=== PATIENT | male | born 1950 | race Native Hawaiian/Other Pacific Islander ===

== ENCOUNTER → 2017-11-10 | Outpatient (CLI) | payer MEDICARE ==
[2017-11-10 11:50] LABS: Anion Gap 11 mmol/L; Blood Urea Nitrogen 20 mg/dL (9-20); Calcium 9.2 mg/dL (8.4-10.2); Carbon Dioxide 27 mmol/L (22-30); Chloride 103 mmol/L (98-107); Glucose 94 mg/dL (74-99); Potassium 4.6 mmol/L (3.5-5.1); Sodium 141 mmol/L (137-145)
[2017-11-10 12:59] LABS: HCT 40.1 % (39.0-53.0); MCHC 32.3 g/dL (31.0-37.0); Mean Platelet Volume 7.7; RBC 4.47 m/uL (4.30-5.90); RDW 14.4 % (11.5-15.5); WBC 7.8 k/uL (3.8-10.6)
[2017-11-10 13:07] LABS: MCV 89.7 fL (80.0-100.0)
[2017-11-10 13:08] LABS: Platelet Count 179 k/uL (150-450)
== END | disposition home or self-care (01) ==
LOC: LABWHC1 10:56
PROVIDERS: ATTEND Internal Medicine Clinical Cardiac Electrophysiology
DX: I10 Essential (primary) hypertension (principal)
CPT/HCPCS: 36415; 80048; 85027

== ENCOUNTER → 2017-11-22 | Day surgery (SDC) | payer MEDICARE, OTHER ==
[2017-11-17 08:56] VITALS: BMI 32.3
[~2017-11-22] MED LIST: MIDAZOLAM 2 MG/2 ML VIAL ONE; PROPOFOL 10 MG/ML 20 ML VIAL IV ONE; SODIUM CHLORIDE 0.9% 1,000 ML IV SCH
[2017-11-22 07:17] VITALS: RESP 20
--- NOTE | 2017-11-22 08:32 | CE ---
CARDIAC ELECTROPHYSIOLOGY REPORT Mr. Garcia is a 67-year-old male patient with a history of ischemic cardiomyopathy who has had ventricular fibrillation after bypass surgery and received a dual-chamber ICD. He is brought in for DFT testing under anesthesia 3 months after his bypass grafting. Patient is brought to the EP lab in a fasting state. The ICD was interrogated. P- waves 5.8 mV, pacing impedance at the atrium 798 ohms, pacing threshold 0.8 V at 0.5 milliseconds. The ventricular sensing was greater than 25 mV, pacing impedance 519 ohms, pacing threshold 0.7 V at 0.5 milliseconds. Shock impedance 62 ohms. Under conscious sedation, DFT testing was performed in normal polarity. However, an 11 joule followed by a 21 joule shock failed and he had to be externally defibrillated. After waiting for 120 seconds and ensuring patient was stable, DFT testing once again performed in reverse polarity. A 21 joule shock failed and a 31 joule shock was successful. Charge time 4.9 seconds and shock impedance 56 ohms in reverse polarity. The device was then reprogrammed in reverse polarity with appropriate antitachycardia pacing cardioversion and defibrillation. First cardioversion at 31 joules, first defibrillation at 41 joules, MADIT-RIT programming. RESULT: High DFTs, DFT at 31 joules in reverse polarity. ICD interrogated and reprogrammed appropriately. Lead fluoroscopy was performed and the atrial RV and ICD leads were in stable position. RV ICD lead had been chronically placed in the septum. No dislodgement noted. FINAL DIAGNOSIS: Ischemic cardiomyopathy, congestive heart failure, ventricular fibrillation following bypass grafting after revascularization and now high DFTs. PLAN: Continue and maximize cardiac medications. MMODL / IJN: [id number] /
[2017-11-22 09:32] VITALS: BP 192/91; PULSE 60; TEMP 98
== END | disposition home or self-care (01) ==
LOC: CATHEP 06:05
PROVIDERS: ATTEND Internal Medicine Clinical Cardiac Electrophysiology
DX: I49.01 Ventricular fibrillation (principal); Z45.02 Encounter for adjustment and management of automatic implantable cardiac defibrillator; I25.5 Ischemic cardiomyopathy; I25.10 Atherosclerotic heart disease of native coronary artery without angina pectoris; I10 Essential (primary) hypertension; Z87.891 Personal history of nicotine dependence; Z95.1 Presence of aortocoronary bypass graft; E78.5 Hyperlipidemia, unspecified; Z79.02 Long term (current) use of antithrombotics/antiplatelets; Z79.82 Long term (current) use of aspirin; Z79.1 Long term (current) use of non-steroidal anti-inflammatories (NSAID); Z79.899 Other long term (current) drug therapy
CPT/HCPCS: 76000; 93642

== ENCOUNTER → 2018-09-29 | Outpatient (CLI) | payer MEDICARE, OTHER ==
[2018-09-29 16:04] LABS: Albumin 4.2 g/dL (3.80-4.90); Albumin/Globulin Ratio 2.33 (1.20-2.10); Anion Gap 6.3 mmol/L (4.00-12.00); Calcium 8.6 mg/dL (8.7-10.3); Carbon Dioxide 27.7 mmol/L (21.6-31.8); Globulin 1.8 g/dL (2.1-3.7); LDL Cholesterol,Calculated 50.2 mg/dL (0.0-131.0); Potassium 4.4 mmol/L (3.5-5.5); Total Bilirubin 0.6 mg/dL (0.3-1.2); VLDL Calculation 30.8 mg/dL (5.00-40.00)
== END | disposition home or self-care (01) ==
LOC: LABWHC1 09:42
PROVIDERS: ATTEND Nurse Practitioner Adult Health
DX: E78.5 Hyperlipidemia, unspecified (principal); I10 Essential (primary) hypertension
CPT/HCPCS: 36415; 80053; 80061

== ENCOUNTER → 2021-06-13 | Outpatient (CLI) | payer MEDICARE, OTHER ==
[2021-06-13 19:35] LABS: Chol/HDL Ratio 3.56; LDL Cholesterol,Calculated 37.8 mg/dL (0.0-131.0); VLDL Calculation 54.2 mg/dL (5.00-40.00)
== END | disposition home or self-care (01) ==
LOC: LABWHC1 09:36
PROVIDERS: ATTEND Internal Medicine Interventional Cardiology
DX: E78.2 Mixed hyperlipidemia (principal)
CPT/HCPCS: 36415; 80061; 84450; 84460

== ENCOUNTER → 2023-01-14 | Outpatient (CLI) | payer MEDICARE, OTHER ==
[2023-01-14 15:28] LABS: HCT 41.3 % (39.6-50.0); HGB 13.6 g/dL (13.0-17.0); MCH 36.3 pg (27.0-32.0); MCHC 32.9 g/dL (32.0-37.0); MCV 110.1 fL (80.0-97.0); Mean Platelet Volume 10.4 fL (9.5-12.2); NRBC Per 100 WBC 0 /100 WBCS (0.0-0.0); Platelet Count 181 X 10*3/uL (140-440); RBC 3.75 X 10*6/uL (4.40-5.60); RDW 13.4 % (11.5-14.5)
[2023-01-14 15:56] LABS: Basophils # (A) 0.03 X 10*3/uL (0.00-0.10); Basophils % (A) 0.4 %; Eosinophils # (A) 0.23 X 10*3/uL (0.04-0.35); Eosinophils % (A) 3.2 %; Immature Grans, Automated 0.4 %; Lymphocytes # (A) 1.78 X 10*3/uL (0.90-5.00); Lymphocytes % (A) 24.4 %; Monocytes # (A) 0.45 X 10*3/uL (0.20-1.00); Monocytes % (A) 6.2 %; Neutrophils # (A) 4.78 X 10*3/uL (1.80-7.70); Neutrophils % (A) 65.4 %; RBC Morphology NORMAL
[2023-01-14 16:02] LABS: ALT 12 U/L (10-49); AST 21 U/L (14-35); African American GFR (CKD) 103.4 (60.0-200.0); Albumin 4.5 g/dL (3.8-4.9); Alkaline Phosphatase 80 U/L (41-126); Blood Urea Nitrogen 23.2 mg/dL (9.0-27.0); Calcium 8.8 mg/dL (8.7-10.3); Carbon Dioxide 24.8 mmol/L (20.0-27.5); Chloride 103 mmol/L (96-109); Globulin 2.5 g/dL (1.6-3.3); Glucose 103 mg/dL (70-110); LDL Cholesterol,Calculated 42.9 mg/dL (0.0-131.0); Non-African American GFR(CKD) 89.2 (60.0-200.0); Potassium 4.8 mmol/L (3.5-5.5); Sodium 140 mmol/L (135-145)
[2023-01-14 16:09] LABS: Vitamin B12 <150.0 pg/mL (200.0-944.0)
== END | disposition home or self-care (01) ==
LOC: LABWHC1 09:04
PROVIDERS: ATTEND Internal Medicine
DX: Z00.00 Encounter for general adult medical examination without abnormal findings (principal); Z12.5 Encounter for screening for malignant neoplasm of prostate; E55.9 Vitamin D deficiency, unspecified; I10 Essential (primary) hypertension; E16.2 Hypoglycemia, unspecified; D51.9 Vitamin B12 deficiency anemia, unspecified; R53.83 Other fatigue
CPT/HCPCS: 80061; 80053; 82607; 84443; 85025; 82306; 83036; 36415; G0103

== ENCOUNTER → 2023-11-26 | Outpatient (CLI) | payer MEDICARE, OTHER ==
--- NOTE | 2023-11-26 08:50 | XR ---
EXAMINATION TYPE: XR chest 2V DATE OF EXAM: 11/26/2023 COMPARISON: 09/20/2017 TECHNIQUE: PA and lateral views submitted. HISTORY: Chest pain FINDINGS: The lungs are clear and there is no pneumothorax, pleural effusion, or focal pneumonia. Heart size normal and no overt failure. Osseous structures demonstrate hypertrophic and degenerative changes of the spine. Poststernotomy changes and cardiac device. IMPRESSION: 1. No acute process.
[2023-11-26 17:00] LABS: T4, Free (Free Thyroxine) 1.55 ng/dL (0.80-1.80)
== END | disposition home or self-care (01) ==
LOC: LABWHC1 07:45
PROVIDERS: ATTEND Internal Medicine Interventional Cardiology
DX: I48.21 Permanent atrial fibrillation (principal)
CPT/HCPCS: 36415; 71046; 84439; 84443; 84450; 84460

== ENCOUNTER → 2024-01-29 | Outpatient (CLI) | payer MEDICARE, OTHER ==
--- NOTE | 2024-01-29 13:16 | XR ---
EXAMINATION TYPE: XR knee complete bilateral DATE OF EXAM: 01/29/2024 9:08 AM CLINICAL INDICATION:Male, 73 years old with history of M25.569 KNEE R L PAIN UNSPECIFIED; [facility] COMPARISON: None. TECHNIQUE: XR knee complete bilateral; examined in Frontal, lateral and oblique projections. FINDINGS: No evidence of any acute osseous pathology, soft tissue swelling, or joint effusion is no hua. Tricompartmental osteophyte formation involving the femoral condyles, tibial plateau and patella . Mild joint space narrowing. Surgical clips along the medial aspect of the proximal leg. IMPRESSION: 1. No acute osseous pathology. 2. Moderate tricompartmental osteoarthritic changes.
== END | disposition home or self-care (01) ==
LOC: RADXRMAIN 08:42
PROVIDERS: ATTEND Internal Medicine
DX: M17.0 Bilateral primary osteoarthritis of knee (principal)

== ENCOUNTER → 2024-02-01 | Outpatient (CLI) | payer MEDICARE, OTHER | END | disposition home or self-care (01) | LOC: LABWHC1 08:48 | PROVIDERS: ATTEND Urology | DX: R97.20 Elevated prostate specific antigen [PSA] (principal) | CPT/HCPCS: 36415; 84153 ==

== ENCOUNTER 2024-03-30 07:05 | Observation (INO) | payer MEDICARE, OTHER ==
--- NOTE | 2024-03-30 07:28 | ED ---
Weakness HPI - General Chief complaint: Weakness Stated complaint: weakness Time Seen by Provider: 03/30/24 07:21 Source: patient, RN notes reviewed Mode of arrival: wheelchair Limitations: no limitations - History of Present Illness Initial comments: This is a 73-year-old male who presents to the emergency department for generalized weakness. This morning he felt like he could not get off of the sofa because he was so weak. He tried multiple times without any success. When he was able to stand he felt very dizzy and when he tried to go to the bathroom he ended up falling, landing on his knees. Denies hitting his head. Denies ever feeling like this before. He has had some tightness in his chest as well as some shortness of breath. States that he currently feels nauseous. He had prostate beads removed [address] Mccord and denies any problems with the procedure or any urinary symptoms. MD Complaint: generalized weakness - Related Data Home Medications Medication Instructions Recorded Confirmed Acetaminophen Tab [Tylenol] 650 mg PO BID 03/30/24 03/30/24 Amiodarone [Cordarone] 100 mg PO DAILY 03/30/24 03/30/24 Ergocalciferol (Vitamin D2) 1,250 mcg PO FR 03/30/24 03/30/24 [Drisdol (50,000 Iu)] Ibuprofen [Motrin] 400 - 800 mg PO Q4-6H PRN 03/30/24 03/30/24 Losartan Potassium 100 mg PO DAILY 03/30/24 03/30/24 Sildenafil Citrate 100 mg PO DAILY PRN 03/30/24 03/30/24 Sulfamethox-Tmp 800-160Mg [Bactrim 1 tab PO DIRECTED 03/30/24 03/30/24 DS 800-160 mg] Tamsulosin [Flomax] 0.4 mg PO DAILY 03/30/24 03/30/24 amLODIPine [Norvasc] 5 mg PO DAILY 03/30/24 03/30/24 carvediloL [Coreg] 25 mg PO BID 03/30/24 03/30/24 Previous Rx's Medication Instructions Recorded Atorvastatin [Lipitor] 40 mg PO DAILY #30 tab 09/20/17 Clopidogrel [Plavix] 75 mg PO DAILY #30 tab 09/20/17 Spironolactone [Aldactone] 25 mg PO DAILY #30 tab 09/20/17 Allergies Allergy/AdvReac Type Severity Reaction Status Date / Time No Known Allergies Allergy Verified 03/30/24 10:35 Review of Systems ROS Statement: Those systems with pertinent positive or pertinent negative responses have been documented in the HPI. ROS Other: All systems not noted in ROS Statement are negative. Past Medical History Past Medical History: Hyperlipidemia, Hypertension Additional Past Medical History / Comment(s): "BORDERLINE DIABETES", HX OF SHINGLES., STATES SLOW URINE STREAM with some post void dribbling. History of a Cyst to his left kidney. pacemaker History of Any Multi-Drug Resistant Organisms: None Reported Past Surgical History: Hernia Repair, Orthopedic Surgery Additional Past Surgical History / Comment(s): RIGHT ROTATOR CUFF, LEFT FOOT FX., LEFT KIDNEY CYSTS, FLORENTIN EAR DRUM SURGERY as a teenager. Past Anesthesia/Blood Transfusion Reactions: No Reported Reaction Past Psychological History: No Psychological Hx Reported Past Alcohol Use History: None Reported Past Drug Use History: None Reported - Past Family History Mother Family Medical History: Cancer Additional Family Medical History / Comment(s): BREAST CANCER Sister(s) Family Medical History: Cancer Additional Family Medical History / Comment(s): HALF-SISTER General Exam Limitations: no limitations General appearance: alert, in no apparent distress Head exam: Present: atraumatic, normocephalic, normal inspection Respiratory exam: Present: normal lung sounds bilaterally. Absent: respiratory distress, wheezes, rales, rhonchi, stridor Cardiovascular Exam: Present: regular rate, normal rhythm, normal heart sounds. Absent: systolic murmur, diastolic murmur, rubs, gallop, clicks GI/Abdominal exam: Present: soft, normal bowel sounds. Absent: distended, tenderness, guarding, rebound, rigid Extremities exam: Present: other (Minor tenderness to palpation of the bilateral knees. No deformities, swelling, or ecchymosis. 2+ DP and PT pulses bilaterally) Neurological exam: Present: alert, oriented X3, CN II-XII intact Psychiatric exam: Present: normal affect, normal mood Skin exam: Present: warm, dry, intact, normal color. Absent: rash Course Vital Signs 03/30/24 03/30/24 07:18 10:36 Temperature 98.6 F Pulse Rate 66 62 Respiratory 18 18 Rate Blood Pressure 137/70 115/60 O2 Sat by Pulse 97 99 Oximetry Medical Decision Making - Medical Decision Making This is a 73-year-old male who presents to the emergency department for generalized weakness. Was pt. sent in by a medical professional or institution? @ -No Did you speak to anyone other than the patient for history? @ -No Did you review nursing and triage notes? @ -Yes, and I agree, it is accurate with regards to the patient's symptoms. Were old charts reviewed? @ -No Differential Diagnosis? @ -Differential Weakness: Hypoglycemia, shock, sepsis, hyponatremia, anemia, infection, [place], ETOH, adverse medicine reaction, overdose, stroke, this is not meant to be an all-inclusive list. EKG interpreted by me (3pts min.)? @ -EKG interpreted by me demonstrating the following: Sinus rhythm. Ventricular rate 67 bpm, LA interval 180 ms, QRS duration 110 ms, QTc 435 ms. X-rays interpreted by me (1pt min.)? @ -Chest x-ray obtained, my interpretation identifies no localized consolidations or infiltrates. X-ray of the bilateral knees obtained. My interpretation identifies no acute fractures. CT interpreted by me (1pt min.)? @ -Not obtained U/S interpreted by me (1pt. min.)? @ -Not obtained What testing was considered but not performed? (CT, X-rays, U/S, labs)? Why? @ -None What meds were considered but not given? Why? @ -None Did you discuss the management of the patient with other professionals? @ -Yes, Dr. Chisholm, who accepts the patient for admission. Did you reconcile home meds? @ -Yes Was smoking cessation discussed for >3mins.? @ -No Was critical care preformed (if so, how long)? @ -No Were there social determinants of health that impacted care today? How? (Homelessness, low income, unemployed, alcoholism, drug addiction, transportation, low edu. Level, literacy, decrease access to med. care, long-term, rehab)? @ -No Was there de-escalation of care discussed even if they declined? (Discuss DNR or withdrawal of care, Hospice)? @ -No What co-morbidities impacted this encounter? (DM, HTN, Smoking, COPD, CAD, Cancer, CVA, Hep., AIDS, mental health diagnosis, sleep apnea, morbid obesity)? @ -HLD, HTN Was patient admitted / discharged? @ -Admitted. Lab work demonstrates leukocytosis. He also has hyperkalemia, h owever potassium is hemolyzed. Potassium repeated and also hemolyzed. Elevated D-dimer of 0.70 is negative when corrected for patient's age. COVID, influenza, RSV testing negative. Urinalysis consistent with infection. Chest x- ray and x-ray of the bilateral knees reveal no acute process. When discussing disposition with the patient and his family, states that they are not comfortable taking him home in his current state given that he is not able to move around and this already led to one fall. Patient admitted to medicine for UTI and weakness. Blood and urine cultures obtained and he was given 2g of Ceftriaxone. Undiagnosed new problem with uncertain prognosis? @ -None Drug Therapy requiring intensive monitoring for toxicity (Heparin, Nitro, Insu jaren, Cardizem)? @ -None Were any procedures done? @ -None Diagnosis/symptom? @ -UTI, weakness Acute, or Chronic, or Acute on Chronic? @ -Acute Uncomplicated (without systemic symptoms) or Complicated (systemic symptoms)? @ -Complicated Side effects of treatment? @ -None Exacerbation, Progression, or Severe Exacerbation] @ -Not applicable Poses a threat to life or bodily function? @ -Yes This case was discussed in detail with the attending ED physician, Dr. David. Presentation, findings, and treatment plan discussed in detail as well. - Lab Data Result diagrams: 03/30/24 07:43 03/30/24 09:14 Lab Results 03/30/24 03/30/24 03/30/24 Range/Units 07:43 07:43 07:43 WBC 16.7 H (3.8-10.6) k/uL RBC 3.88 L (4.30-5.90) m/uL Hgb 13.2 (13.0-17.5) gm/dL Hct 39.7 (39.0-53.0) % MCV 102.2 H (80.0-100.0) fL MCH 34.0 (25.0-35.0) pg MCHC 33.3 (31.0-37.0) g/dL RDW 14.2 (11.5-15.5) % Plt Count 222 (150-450) k/uL MPV 7.9 Neutrophils % 87 % Lymphocytes % 7 % Monocytes % 6 % Eosinophils % 0 % Basophils % 0 % Neutrophils # 14.4 H (1.3-7.7) k/uL Lymphocytes # 1.2 (1.0-4.8) k/uL Monocytes # 0.9 (0-1.0) k/uL Eosinophils # 0.0 (0-0.7) k/uL Basophils # 0.0 (0-0.2) k/uL Macrocytosis Slight PT 11.4 (10.0-12.5) sec INR 1.1 (<1.2) APTT 23.3 (22.0-30.0) sec D-Dimer 0.70 H (<0.60) mg/L FEU Sodium 136 L (137-145) mmol/L Potassium 5.6 H (3.5-5.1) mmol/L Chloride 107 (98-107) mmol/L Carbon Dioxide 22 (22-30) mmol/L Anion Gap 7 mmol/L BUN 24 H (9-20) mg/dL Creatinine 0.89 (0.66-1.25) mg/dL Est GFR (CKD-EPI)AfAm >90 (>60 ml/min/1.73 sqM) Est GFR (CKD-EPI)NonAf 85 (>60 ml/min/1.73 sqM) Glucose 119 H (74-99) mg/dL Plasma Lactic Acid Prasad (0.7-2.0) mmol/L Calcium 8.8 (8.4-10.2) mg/dL Magnesium 1.7 (1.6-2.3) mg/dL Total Bilirubin 1.1 (0.2-1.3) mg/dL AST 48 (17-59) U/L ALT 21 (4-49) U/L Alkaline Phosphatase 51 (38-126) U/L Troponin I (0.000-0.034) ng/mL Total Protein 6.4 (6.3-8.2) g/dL Albumin 3.8 (3.5-5.0) g/dL Urine Color Urine Appearance (Clear) Urine pH (5.0-8.0) Ur Specific [place] (1.001-1.035) Urine Protein (Negative) Urine Glucose (UA) (Negative) Urine Ketones (Negative) Urine Blood (Negative) Urine Nitrite (Negative) Urine Bilirubin (Negative) Urine Urobilinogen (<2.0) mg/dL Ur Leukocyte Esterase (Negative) Urine RBC (0-5) /hpf Urine WBC (0-5) /hpf Ur Squamous Epith Cells (0-4) /hpf Urine Bacteria (None) /hpf Urine Mucus (None) /hpf Influenza Type A (PCR) (Not Detectd) Influenza Type B (PCR) (Not Detectd) RSV (PCR) (Not Detectd) SARS-CoV-2 (PCR) (Not Detectd) 03/30/24 03/30/24 03/30/24 Range/Units 07:43 07:43 07:50 WBC (3.8-10.6) k/uL RBC (4.30-5.90) m/uL Hgb (13.0-17.5) gm/dL Hct (39.0-53.0) % MCV (80.0-100.0) fL MCH (25.0-35.0) pg MCHC (31.0-37.0) g/dL RDW (11.5-15.5) % Plt Count (150-450) k/uL MPV Neutrophils % % Lymphocytes % % Monocytes % % Eosinophils % % Basophils % % Neutrophils # (1.3-7.7) k/uL Lymphocytes # (1.0-4.8) k/uL Monocytes # (0-1.0) k/uL Eosinophils # (0-0.7) k/uL Basophils # (0-0.2) k/uL Macrocytosis PT (10.0-12.5) sec INR (<1.2) APTT (22.0-30.0) sec D-Dimer (<0.60) mg/L FEU Sodium (137-145) mmol/L Potassium (3.5-5.1) mmol/L Chloride (98-107) mmol/L Carbon Dioxide (22-30) mmol/L Anion Gap mmol/L BUN (9-20) mg/dL Creatinine (0.66-1.25) mg/dL Est GFR (CKD-EPI)AfAm (>60 ml/min/1.73 sqM) Est GFR (CKD-EPI)NonAf (>60 ml/min/1.73 sqM) Glucose (74-99) mg/dL Plasma Lactic Acid Prasad 1.1 (0.7-2.0) mmol/L Calcium (8.4-10.2) mg/dL Magnesium (1.6-2.3) mg/dL Total Bilirubin (0.2-1.3) mg/dL AST (17-59) U/L ALT (4-49) U/L Alkaline Phosphatase (38-126) U/L Troponin I <0.012 (0.000-0.034) ng/mL Total Protein (6.3-8.2) g/dL Albumin (3.5-5.0) g/dL Urine Color Urine Appearance (Clear) Urine pH (5.0-8.0) Ur Specific [place] (1.001-1.035) Urine Protein (Negative) Urine Glucose (UA) (Negative) Urine Ketones (Negative) Urine Blood (Negative) Urine Nitrite (Negative) Urine Bilirubin (Negative) Urine Urobilinogen (<2.0) mg/dL Ur Leukocyte Esterase (Negative) Urine RBC (0-5) /hpf Urine WBC (0-5) /hpf Ur Squamous Epith Cells (0-4) /hpf Urine Bacteria (None) /hpf Urine Mucus (None) /hpf Influenza Type A (PCR) Not Detected (Not Detectd) Influenza Type B (PCR) Not Detected (Not Detectd) RSV (PCR) Not Detected (Not Detectd) SARS-CoV-2 (PCR) Not Detected (Not Detectd) 03/30/24 03/30/24 Range/Units 09:14 09:14 WBC (3.8-10.6) k/uL RBC (4.30-5.90) m/uL Hgb (13.0-17.5) gm/dL Hct (39.0-53.0) % MCV (80.0-100.0) fL MCH (25.0-35.0) pg MCHC (31.0-37.0) g/dL RDW (11.5-15.5) % Plt Count (150-450) k/uL MPV Neutrophils % % Lymphocytes % % Monocytes % % Eosinophils % % Basophils % % Neutrophils # (1.3-7.7) k/uL Lymphocytes # (1.0-4.8) k/uL Monocytes # (0-1.0) k/uL Eosinophils # (0-0.7) k/uL Basophils # (0-0.2) k/uL Macrocytosis PT (10.0-12.5) sec INR (<1.2) APTT (22.0-30.0) sec D-Dimer (<0.60) mg/L FEU Sodium (137-145) mmol/L Potassium 5.9 H (3.5-5.1) mmol/L Chloride (98-107) mmol/L Carbon Dioxide (22-30) mmol/L Anion Gap mmol/L BUN (9-20) mg/dL Creatinine (0.66-1.25) mg/dL Est GFR (CKD-EPI)AfAm (>60 ml/min/1.73 sqM) Est GFR (CKD-EPI)NonAf (>60 ml/min/1.73 sqM) Glucose (74-99) mg/dL Plasma Lactic Acid Prasad (0.7-2.0) mmol/L Calcium (8.4-10.2) mg/dL Magnesium (1.6-2.3) mg/dL Total Bilirubin (0.2-1.3) mg/dL AST (17-59) U/L ALT (4-49) U/L Alkaline Phosphatase (38-126) U/L Troponin I (0.000-0.034) ng/mL Total Protein (6.3-8.2) g/dL Albumin (3.5-5.0) g/dL Urine Color Yellow Urine Appearance Clear (Clear) Urine pH 5.0 (5.0-8.0) Ur Specific [place] 1.017 (1.001-1.035) Urine Protein Negative (Negative) Urine Glucose (UA) Negative (Negative) Urine Ketones Negative (Negative) Urine Blood Small H (Negative) Urine Nitrite Negative (Negative) Urine Bilirubin Negative (Negative) Urine Urobilinogen <2.0 (<2.0) mg/dL Ur Leukocyte Esterase Large H (Negative) Urine RBC 18 H (0-5) /hpf Urine WBC 65 H (0-5) /hpf Ur Squamous Epith Cells 1 (0-4) /hpf Urine Bacteria Many H (None) /hpf Urine Mucus Rare H (None) /hpf Influenza Type A (PCR) (Not Detectd) Influenza Type B (PCR) (Not Detectd) RSV (PCR) (Not Detectd) SARS-CoV-2 (PCR) (Not Detectd) - Radiology Data Radiology results: report reviewed, image reviewed Disposition Clinical Impression: UTI (urinary tract infection), Weakness Disposition: ADMITTED IP TO THIS HOSP
[2024-03-30] MEDS: SODIUM CHLORIDE 0.9% 1,000 ML IV STA (07:52)
[2024-03-30] MEDS: ONDANSETRON 4 MG/2 ML VIAL IVP STA (07:53)
[2024-03-30 07:58] LABS: Basophils % (A) 0 %; Eosinophils % (A) 0 %; HCT 39.7 % (39.0-53.0); HGB 13.2 gm/dL (13.0-17.5); Lymphocytes # (A) 1.2 k/uL (1.0-4.8); Lymphocytes % (A) 7 %; MCHC 33.3 g/dL (31.0-37.0); MCV 102.2 fL (80.0-100.0); Macrocytosis Slight; Mean Platelet Volume 7.9; Monocytes # (A) 0.9 k/uL (0-1.0); Monocytes % (A) 6 %; Neutrophils # (A) 14.4 k/uL (1.3-7.7); Neutrophils % (A) 87 %; Platelet Count 222 k/uL (150-450); RBC 3.88 m/uL (4.30-5.90); RDW 14.2 % (11.5-15.5); WBC 16.7 k/uL (3.8-10.6)
[2024-03-30 08:21] LABS: ALT 21 U/L (4-49); AST 48 U/L (17-59); African American GFR (CKD) >90 (>60 ml/min/1.73 sqM); Albumin 3.8 g/dL (3.5-5.0); Alkaline Phosphatase 51 U/L (38-126); Anion Gap 7 mmol/L; Blood Urea Nitrogen 24 mg/dL (9-20); Calcium 8.8 mg/dL (8.4-10.2); Carbon Dioxide 22 mmol/L (22-30); Chloride 107 mmol/L (98-107); Glucose 119 mg/dL (74-99); Magnesium 1.7 mg/dL (1.6-2.3); Non-African American GFR(CKD) 85 (>60 ml/min/1.73 sqM); Sodium 136 mmol/L (137-145); Total Bilirubin 1.1 mg/dL (0.2-1.3); Total Protein 6.4 g/dL (6.3-8.2)
--- NOTE | 2024-03-30 08:23 | XR ---
EXAMINATION TYPE: XR chest 2V DATE OF EXAM: 03/30/2024 COMPARISON: 11/26/2023 TECHNIQUE: PA and lateral views submitted. HISTORY: Chest tightness FINDINGS: The lungs are clear and there is no pneumothorax, pleural effusion, or focal pneumonia. Heart size normal and no overt failure. Osseous structures demonstrate hypertrophic and degenerative changes of the spine. Stable cardiac device. Arthropathy of the AC joint. IMPRESSION: 1. No acute process.
--- NOTE | 2024-03-30 08:25 | XR ---
EXAMINATION TYPE: XR knee complete bilateral DATE OF EXAM: 03/30/2024 COMPARISON: NONE HISTORY: Pain TECHNIQUE: Three views are submitted. FINDINGS: Severe narrowing of the patellofemoral compartment and medial compartment of knee joint. There is mar ginal spurring. These findings or heterotopic ossification involving the patella and spurring of the tibial tubercle bilaterally. No erosive changes. Surgical clips are seen in the soft tissues of the l eft lower extremity. There are vascular calcifications.. Osseous structures are intact. No acute fr acture seen. IMPRESSION: 1. Bilateral severe osteoarthritis..
[2024-03-30 08:38] LABS: Potassium 5.6 mmol/L (3.5-5.1)
[2024-03-30 08:42] LABS: INR 1.1 (<1.2); Partial Thromboplastin Time 23.3 sec (22.0-30.0); Prothrombin Time 11.4 sec (10.0-12.5)
[2024-03-30 09:38] LABS: Appearance,Urine Clear (Clear); Bacteria,Urine Many /hpf; Bilirubin,Urine Negative (Negative); Blood,Urine Small (Negative); Color,Urine Yellow; Glucose,Urine (UA) Negative (Negative); Ketones,Urine Negative (Negative); Leukocyte Esterase,Urine Large (Negative); Mucus,Urine Rare /hpf; Nitrite,Urine Negative (Negative); Protein,Urine Negative (Negative); RBC,Urine 18 /hpf (0-5); Specific Gravity,Urine 1.017 (1.001-1.035); Squamous Epithelial Cell,Urine 1 /hpf (0-4); Urobilinogen,Urine <2.0 mg/dL (<2.0); WBC,Urine 65 /hpf (0-5)
[2024-03-30] MEDS ORDERED: HYDROcodone/APAP 5-325MG 1 EACH TAB PO PRN (10:42)
[2024-03-30] MEDS ORDERED: ACETAMINOPHEN TAB 325 MG TAB PO PRN (10:42)
[2024-03-30] MEDS ORDERED: ONDANSETRON 4 MG/2 ML VIAL IVP PRN (10:42)
[2024-03-30] MEDS ORDERED: NALOXONE 0.4 MG/ML 1 ML VIAL IV PRN (10:42)
[2024-03-30] MEDS ORDERED: MORPHINE SULFATE 4 MG/ML SYRINGE IV PRN (10:42)
[2024-03-30] MEDS ORDERED: IBUPROFEN 400 MG TAB PO PRN (10:43)
[2024-03-30] MEDS ORDERED: NON FORMULARY DRUG (Sildenafil Citrate [Sildenafil Citrate] 100 MG Tablet) PO PRN (10:43)
[2024-03-30] MEDS: SODIUM CHLORIDE 0.9% 1,000 ML IV SCH (10:58)
[2024-03-30] MEDS: SODIUM ZIRCONIUM CYCLOSILICATE 10 GM PACKET PO ONE (14:13)
--- NOTE | 2024-03-30 14:14 | P.HPIM ---
History of Present Illness 73-year-old pleasant male came to emergency department with complaints of generalized weakness dysuria and increased urinary frequency patient had a cystoscopy with prostatic biopsies about a week ago since then patient having these problems. Patient is also on Bactrim which was started by his dentist although I do not see any overt dental abscess or infection at this time. Patient is also found to have elevated potassium patient is on Aldactone and losartan and patient does have history of congestive heart failure with EF of a round 30 to 35%. Patient is not on any diuretics at home. Patient denies any fever chills patient was complaining of her epigastric abdominal discomfort although patient's medication list includes ibuprofen patient has not been taking this medication. Patient has leukocytosis without any fever. REVIEW OF SYSTEMS: CONSTITUTIONAL: No fever, no malaise, no fatigue. HEENT: No recent visual problems or hearing problems. Denied any sore throat. CARDIOVASCULAR: No chest pain, orthopnea, PND, no palpitations, no syncope. PULMONARY: No shortness of breath, no cough, no hemoptysis. GASTROINTESTINAL: No diarrhea, no nausea, no vomiting, no abdominal pain. NEUROLOGICAL: No headaches, no weakness, no numbness. HEMATOLOGICAL: Denies any bleeding or petechiae. GENITOURINARY: As mentioned in HPI MUSCULOSKELETAL/RHEUMATOLOGICAL: Denies any joint pain, swelling, or any muscle pain. ENDOCRINE: Denies any polyuria or polydipsia. The rest of the 14-point review of systems is negative. PHYSICAL EXAMINATION: GENERAL: The patient is alert and oriented x3, not in any acute distress. Well developed, well nourished. HEENT: Pupils are round and equally reacting to light. EOMI. No scleral icterus. No conjunctival pallor. Normocephalic, atraumatic. No pharyngeal erythema. No thyromegaly. CARDIOVASCULAR: S1 and S2 present. No murmurs, rubs, or gallops. PULMONARY: Chest is clear to auscultation, no wheezing or crackles. ABDOMEN: Soft, nontender, nondistended, normoactive bowel sounds. No palpable organomegaly. MUSCULOSKELETAL: No joint swelling or deformity. EXTREMITIES: No cyanosis, clubbing, or pedal edema. NEUROLOGICAL: Gross neurological examination did not reveal any focal deficits. SKIN: No rashes. Assessment and plan -Possible urinary tract infection, urine is not significantly abnormal as patient is being partially treated with Bactrim I do not expect his urine cultures to be positive patient will be empirically started on Rocephin if his symptoms improve patient will be discharged on Ceftin tomorrow -Hyperkalemia secondary to Bactrim, losartan, Aldactone all of which are being held at this time. If patient's potassium improves with Lokelma and low potas sium diet patient will be resumed on losartan and Aldactone. -Congestive heart failure chronic systolic function without any acute exacerbation patient is IV fluids will be discontinued and patient patient will be resumed on losartan and Aldactone once a potassium improves -Hyperlipidemia -Hypertension amlodipine will be resumed losartan will be resumed tomorrow if potassium improves -Recent prostatic biopsy DVT prophylaxis: Early ambulation Past Medical History Past Medical History: Hyperlipidemia, Hypertension Additional Past Medical History / Comment(s): "BORDERLINE DIABETES", HX OF SHINGLES., STATES SLOW URINE STREAM with some post void dribbling. History of a Cyst to his left kidney. pacemaker History of Any Multi-Drug Resistant Organisms: None Reported Past Surgical History: Hernia Repair, Orthopedic Surgery Additional Past Surgical History / Comment(s): RIGHT ROTATOR CUFF, LEFT FOOT FX., LEFT KIDNEY CYSTS, FLORENTIN EAR DRUM SURGERY as a teenager. Past Anesthesia/Blood Transfusion Reactions: No Reported Reaction Past Psychological History: No Psychological Hx Reported Past Alcohol Use History: None Reported Past Drug Use History: None Reported - Past Family History Mother Family Medical History: Cancer Additional Family Medical History / Comment(s): BREAST CANCER Sister(s) Family Medical History: Cancer Additional Family Medical History / Comment(s): HALF-SISTER Medications and Allergies Home Medications Medication Instructions Recorded Confirmed Type Atorvastatin [Lipitor] 40 mg PO DAILY #30 tab 09/20/17 03/30/24 Rx Clopidogrel [Plavix] 75 mg PO DAILY #30 tab 09/20/17 03/30/24 Rx Spironolactone [Aldactone] 25 mg PO DAILY #30 tab 09/20/17 03/30/24 Rx Acetaminophen Tab [Tylenol] 650 mg PO BID 03/30/24 03/30/24 History Amiodarone [Cordarone] 100 mg PO DAILY 03/30/24 03/30/24 History Ergocalciferol (Vitamin D2) 1,250 mcg PO FR 03/30/24 03/30/24 History [Drisdol (50,000 Iu)] Ibuprofen [Motrin] 400 - 800 mg PO Q4-6H PRN 03/30/24 03/30/24 History Losartan Potassium 100 mg PO DAILY 03/30/24 03/30/24 History Sildenafil Citrate 100 mg PO DAILY PRN 03/30/24 03/30/24 History Sulfamethox-Tmp 800-160Mg [Bactrim 1 tab PO DIRECTED 03/30/24 03/30/24 History DS 800-160 mg] Tamsulosin [Flomax] 0.4 mg PO DAILY 03/30/24 03/30/24 History amLODIPine [Norvasc] 5 mg PO DAILY 03/30/24 03/30/24 History carvediloL [Coreg] 25 mg PO BID 03/30/24 03/30/24 History Allergies Allergy/AdvReac Type Severity Reaction Status Date / Time No Known Allergies Allergy Verified 03/30/24 10:35 Physical Exam Vitals: Vital Signs Temp Pulse Resp BP Pulse Ox 03/30/24 13:08 66 16 152/70 94 L 03/30/24 10:36 62 18 115/60 99 03/30/24 07:18 98.6 F 66 18 137/70 97 Intake and Output 03/29/24 03/30/24 03/30/24 22:59 06:59 14:59 Other: Weight 99.79 kg Results CBC & Chem 7: 03/30/24 07:43 03/30/24 09:14 Labs: Abnormal Lab Results - Last 24 Hours (Table) 03/30/24 03/30/24 03/30/24 Range/Units 07:43 07:43 07:43 WBC 16.7 H (3.8-10.6) k/uL RBC 3.88 L (4.30-5.90) m/uL MCV 102.2 H (80.0-100.0) fL Neutrophils # 14.4 H (1.3-7.7) k/uL D-Dimer 0.70 H (<0.60) mg/L FEU Sodium 136 L (137-145) mmol/L Potassium 5.6 H (3.5-5.1) mmol/L BUN 24 H (9-20) mg/dL Glucose 119 H (74-99) mg/dL Urine Blood (Negative) Ur Leukocyte Esterase (Negative) Urine RBC (0-5) /hpf Urine WBC (0-5) /hpf Urine Bacteria (None) /hpf Urine Mucus (None) /hpf 03/30/24 03/30/24 Range/Units 09:14 09:14 WBC (3.8-10.6) k/uL RBC (4.30-5.90) m/uL MCV (80.0-100.0) fL Neutrophils # (1.3-7.7) k/uL D-Dimer (<0.60) mg/L FEU Sodium (137-145) mmol/L Potassium 5.9 H (3.5-5.1) mmol/L BUN (9-20) mg/dL Glucose (74-99) mg/dL Urine Blood Small H (Negative) Ur Leukocyte Esterase Large H (Negative) Urine RBC 18 H (0-5) /hpf Urine WBC 65 H (0-5) /hpf Urine Bacteria Many H (None) /hpf Urine Mucus Rare H (None) /hpf
[2024-03-30] MEDS: ACETAMINOPHEN TAB 325 MG TAB PO SCH (22:03)
[2024-03-30] MEDS: PANTOPRAZOLE 40 MG/10 ML VIAL IVP SCH (22:03)
[2024-03-30] MEDS: carvediloL 12.5 MG TAB PO SCH (22:03)
[2024-03-31] MEDS ORDERED: LOSARTAN 50 MG TAB PO SCH ×2 (09:00)
[2024-03-31] MEDS ORDERED: SPIRONOLACTONE 25 MG TAB PO SCH (09:00)
[2024-03-31 09:19] VITALS: PULSE 57
[2024-03-31] MEDS: CLOPIDOGREL 75 MG TAB PO SCH (09:30)
[2024-03-31] MEDS: amLODIPine 5 MG TAB PO SCH (09:32)
[2024-03-31] MEDS: ATORVASTATIN 40 MG TAB PO SCH (09:32)
[2024-03-31] MEDS: TAMSULOSIN 0.4 MG CAP.ER.24H PO SCH (09:32)
[2024-03-31] MEDS: AMIODARONE 100 MG TAB PO SCH (09:33)
[2024-03-31] MEDS: ERGOCALCIFEROL 1,250 MCG (50,000 IU) CAPSULE PO SCH (09:33)
[2024-03-31 10:31] LABS: HCT 36.9 % (39.6-50.0); HGB 12.1 g/dL (13.0-17.0); MCH 33.7 pg (27.0-32.0); MCHC 32.8 g/dL (32.0-37.0); MCV 102.8 FL (80.0-97.0); Mean Platelet Volume 9.8 FL (9.5-12.2); NRBC Per 100 WBC 0 X 10*3/uL (0.00-0.01); Platelet Count 179 X 10*3/uL (140-440); RBC 3.59 X 10*6/uL (4.40-5.60); RDW 14.4 % (11.5-14.5); WBC 16.15 X 10*3/uL (4.50-10.00)
[2024-03-31 10:36] LABS: BUN/Creat Ratio 18.45 Ratio (12.00-20.00); Blood Urea Nitrogen 20.3 mg/dL (9.0-27.0); Calcium 8.3 mg/dL (8.7-10.3); Carbon Dioxide 22.7 mmol/L (21.6-31.8); Chloride 104 mmol/L (96-109); Glucose 112 mg/dL (70-110); Magnesium 1.7 mg/dL (1.5-2.4); Potassium 4.5 mmol/L (3.5-5.5); Sodium 138 mmol/L (135-145)
[2024-03-31 14:02] VITALS: BP 101/67; RESP 18; TEMP 98.1
--- NOTE | 2024-04-01 16:33 | P.DS ---
Providers Date of admission: 03/30/24 10:50 Attending physician: David Chisholm Primary care physician: Isabelle Sheridan Hospital Course: Final Diagnosis -Urinary tract infection without sepsis present on admission. Urine culture showing gram-negative bacilli finalized to E. coli with sensitivities to cephalosporins and will discharge on oral Ceftin. -Hyperkalemia secondary to Bactrim, losartan, Aldactone all of which are being held at this time. -Congestive heart failure chronic systolic function without any acute exacerbation patient is IV fluids will be discontinued and patient patient will be resumed on losartan and Aldactone once a potassium improves -Hyperlipidemia -Hypertension amlodipine will be resumed losartan will be resumed tomorrow if potassium improves -Recent prostatic biopsy Discharge Disposition Patient stable for discharge home. As mentioned he will complete a course of oral Ceftin for the next 6 days on discharge. Recommending to discontinue the Bactrim. Patient has been taken off losartan however he is continued on Aldactone. He will discharge on amlodipine 2.5 mg daily. Patient to see his PCP Dr. Sheridan in 1 to 2 days. Patient to follow-up with his urologist Dr. Mccord in 1 week. Repeat blood work in 2 to 3 days. Hospital Course 73-year-old pleasant male came to emergency department with complaints of generalized weakness dysuria and increased urinary frequency patient had a cystoscopy with prostatic biopsies about a week ago since then patient having these problems. Patient is also on Bactrim which was started by his dentist although I do not see any overt dental abscess or infection at this time. Patient is also found to have elevated potassium patient is on Aldactone and losartan and patient does have history of congestive heart failure with EF of around 30 to 35%. Patient is not on any diuretics at home. Patient denies any fever chills patient was complaining of her epigastric abdominal discomfort although patient's medication list includes ibuprofen patient has not been taking this medication. Patient has leukocytosis without any fever. Urinalysis was abnormal patient was started on IV ceftriaxone while inpatient and was taken off of the oral Bactrim. His mentation has improved. His urine culture does show E. coli which is resistant to oral Bactrim but there is sensitivity to ceftriaxone patient improved clinically and will complete a course of oral antibiotics with Ceftin on discharge. Potassium is normalized down to 4.5. Magnesium was 1.7. He is not retaining urine. He does continue to report some mild dysuria and will discharge on oral Pyridium 3 times a day as needed for the next 3 days. Please see medication reconciliation for a list of current medications. Thank you for allowing us to participate in the care of this patient. The impression and plan of care has been dictated by Krystyna Ashford, Nurse Practitioner as directed. Dr. Stephanie MD I have performed a history and physical examination and medical decision making of this patient, discussed the same with the dictator, and agree with the dictators assessment and plan as written, documented as a scribe. Based on total visit time, I have performed more than 50% of this visit. Patient Condition at Discharge: Stable Plan - Discharge Summary Discharge Rx Participant: Yes New Discharge Prescriptions: New cefUROXime axetiL [Ceftin] 500 mg PO BID 6 Days #12 tab amLODIPine [Norvasc] 2.5 mg PO DAILY #30 tablet Phenazopyridine HCl [Pyridium] 100 mg PO TID 3 Days #9 tab Continue Atorvastatin [Lipitor] 40 mg PO DAILY #30 tab Clopidogrel [Plavix] 75 mg PO DAILY #30 tab Spironolactone [Aldactone] 25 mg PO DAILY #30 tab amLODIPine [Norvasc] 5 mg PO DAILY Ibuprofen [Motrin] 400 - 800 mg PO Q4-6H PRN PRN Reason: Pain Sildenafil Citrate 100 mg PO DAILY PRN PRN Reason: E.D. Tamsulosin [Flomax] 0.4 mg PO DAILY Acetaminophen Tab [Tylenol] 650 mg PO BID Amiodarone [Cordarone] 100 mg PO DAILY carvediloL [Coreg] 25 mg PO BID Ergocalciferol (Vitamin D2) [Drisdol (50,000 Iu)] 1,250 mcg PO FR Discontinued Losartan Potassium 100 mg PO DAILY Sulfamethox-Tmp 800-160Mg [Bactrim DS 800-160 mg] 1 tab PO DIRECTED Discharge Medication List Atorvastatin [Lipitor] 40 mg PO DAILY #30 tab 09/20/17 [Rx] Clopidogrel [Plavix] 75 mg PO DAILY #30 tab 09/20/17 [Rx] Spironolactone [Aldactone] 25 mg PO DAILY #30 tab 09/20/17 [Rx] Acetaminophen Tab [Tylenol] 650 mg PO BID 03/30/24 [History] Amiodarone [Cordarone] 100 mg PO DAILY 03/30/24 [History] Ergocalciferol (Vitamin D2) [Drisdol (50,000 Iu)] 1,250 mcg PO FR 03/30/24 [History] Ibuprofen [Motrin] 400 - 800 mg PO Q4-6H PRN 03/30/24 [History] Sildenafil Citrate 100 mg PO DAILY PRN 03/30/24 [History] Tamsulosin [Flomax] 0.4 mg PO DAILY 03/30/24 [History] amLODIPine [Norvasc] 5 mg PO DAILY 03/30/24 [History] carvediloL [Coreg] 25 mg PO BID 03/30/24 [History] Phenazopyridine HCl [Pyridium] 100 mg PO TID 3 Days #9 tab 03/31/24 [Rx] amLODIPine [Norvasc] 2.5 mg PO DAILY #30 tablet 03/31/24 [Rx] cefUROXime axetiL [Ceftin] 500 mg PO BID 6 Days #12 tab 03/31/24 [Rx] Follow up Appointment(s)/Referral(s): Isabelle Sheridan MD [Primary Care Provider] - 1-2 days Nima Mccord MD [STAFF PHYSICIAN] - 1 Week Ambulatory/Diagnostic Orders: Basic Metabolic Panel [LAB.AMB] Location: None Selected Complete Blood Count w/diff [LAB.AMB] Time Frame: 3 Days, Location: None Selected Patient Instructions/Handouts: Urinary Tract Infection in Men (DC), Dysuria (GEN) Activity/Diet/Wound Care/Special Instructions: Stop bactrim Continue ceftin antibiotic Discharge Disposition: HOME SELF-CARE
== END 2024-03-31 15:30 | disposition home or self-care (01) ==
LOC: EC 07:05 → 6NMEDSUR 10:50
PROVIDERS: ADMIT Internal Medicine; ATTEND Internal Medicine
DX: N39.0 Urinary tract infection, site not specified (principal); Z86.19 Personal history of other infectious and parasitic diseases; Z80.3 Family history of malignant neoplasm of breast; Z79.899 Other long term (current) drug therapy; Z79.02 Long term (current) use of antithrombotics/antiplatelets; I11.0 Hypertensive heart disease with heart failure; I50.22 Chronic systolic (congestive) heart failure; E87.5 Hyperkalemia; T36.8X5A Adverse effect of other systemic antibiotics, initial encounter
CPT/HCPCS: 36415; 93005; 85379; 80053; 80048; 83605; 83735 ×2; 84132; 84484; 85025; 85027; 85610; 85730; 81001; 87040; 87086; 87077; 87186; 87636; 73562; 71046; G0378 ×2; J2405; J0696 ×2; C9113 ×2

== ENCOUNTER 2024-09-01 06:40 | Day surgery (SDC) | payer MEDICARE, OTHER ==
[2024-09-01] MEDS ORDERED: NITROGLYCERIN SL TABS 0.4 MG TAB SUBLINGUAL PRN ×2 (06:41→11:01)
[2024-09-01] MEDS ORDERED: ALPRAZolam 0.25 MG TAB PO PRN (06:41)
[2024-09-01] MEDS ORDERED: ALPRAZolam 0.5 MG TAB PO PRN (06:41)
[2024-09-01] MEDS ORDERED: ATORVASTATIN 80 MG TAB PO STA (06:41)
[2024-09-01] MEDS: ASPIRIN 325 MG TAB PO STA (06:50)
[2024-09-01] MEDS: IV FLUID CONTINUATION 1,000 ML IV ONE (07:00)
[2024-09-01] MEDS: SODIUM CHLORIDE 0.9% 1,000 ML in EMPTY BAG 1 BAG IV SCH (07:01)
[2024-09-01 07:18] VITALS: RESP 16; TEMP 98.1
[2024-09-01 07:26] LABS: Basophils % (A) 1 %; Eosinophils # (A) 0.1 k/uL (0-0.7); Eosinophils % (A) 2 %; HCT 36.9 % (39.0-53.0); HGB 12.3 gm/dL (13.0-17.5); Lymphocytes # (A) 1.4 k/uL (1.0-4.8); Lymphocytes % (A) 24 %; MCH 35.4 pg (25.0-35.0); MCHC 33.3 g/dL (31.0-37.0); MCV 106.5 fL (80.0-100.0); Macrocytosis Moderate; Mean Platelet Volume 8.4; Monocytes # (A) 0.4 k/uL (0-1.0); Monocytes % (A) 6 %; Neutrophils % (A) 67 %; Platelet Count 161 k/uL (150-450); RBC 3.46 m/uL (4.30-5.90); RDW 14.6 % (11.5-15.5)
[2024-09-01 07:54] LABS: African American GFR (CKD) >90 (>60 ml/min/1.73 sqM); Anion Gap 6 mmol/L; Blood Urea Nitrogen 31 mg/dL (9-20); Calcium 8.5 mg/dL (8.4-10.2); Carbon Dioxide 23 mmol/L (22-30); Chloride 110 mmol/L (98-107); Glucose 98 mg/dL (74-99); Non-African American GFR(CKD) 82 (>60 ml/min/1.73 sqM); Potassium 5.3 mmol/L (3.5-5.1); Sodium 139 mmol/L (137-145)
[2024-09-01] MEDS: MIDAZOLAM 2 MG/2 ML VIAL IVP ONE (08:54)
[2024-09-01] MEDS: fentaNYL (PF) 50 MCG/ML 2 ML AMP IVP ONE (08:54)
[2024-09-01] MEDS: LIDOCAINE 1% INJ 10MG/ML (20 ML MDV) SQ ONE (08:54)
[2024-09-01] MEDS: HEPARIN SODIUM,PORCINE (1 ML) 2,500 UNIT in SODIUM CHLORIDE 0.9% 250 ML IRRIGATION PRN (09:01)
[2024-09-01] MEDS: HEPARIN SODIUM,PORCINE 10,000 UNIT in SODIUM CHLORIDE 0.9% 1,000 ML IRRIGATION PRN (09:01)
[2024-09-01] MEDS: IOPAMIDOL-370 100ML BTL INJ ONE ×2 (09:06→09:43)
[2024-09-01] MEDS: HEPARIN SODIUM 1,000 UN/ML (10ML VL) IV ONE (09:10)
[2024-09-01] MEDS: NITROGLYCERIN 1000MCG/10ML SYRINGE INTRACORON ONE (09:33)
[2024-09-01] MEDS: CLOPIDOGREL 75 MG TAB PO ONE (09:40)
[2024-09-01] MEDS: FUROSEMIDE 10 MG/ML 4 ML VIAL IV ONE (09:43)
[2024-09-01] MEDS ORDERED: ATROPINE SULFATE 0.1 MG/ML 10ML SYRINGE IV PRN (11:01)
[2024-09-01] MEDS ORDERED: RX INFO: IV CONTRAST WAS GIVEN 1 EACH MISC MISCELLANE PRN (11:01)
[2024-09-01] MEDS ORDERED: ACETAMINOPHEN TAB 325 MG TAB PO PRN (11:01)
[2024-09-01] MEDS ORDERED: ZOLPIDEM 5 MG TAB PO PRN (11:01)
[2024-09-01] MEDS ORDERED: MAG HYDROX/AL HYDROX/SIMETH 30 ML CUP PO PRN (11:01)
--- NOTE | 2024-09-01 11:58 | P.PCN ---
Date of Procedure: 09/01/24 Operative Findings: CARDIAC CATHETERIZATION AND PERCUTANEOUS CORONARY INTERVENTION PERFORMING PHYSICIAN: Alin Flanagan MD, [facility] PROCEDURE PERFORMED: 1. Selective right and left coronary angiogram and ARMANDO to LAD angiogram and SVG to diagonal angiogram and SVG to LCx angiogram and SVG to RCA angiogram and left heart catheterization 2. Successful PCI of the diagonal branch using 2.5 x 15 mm Xience JAYANT 3. Ultrasound-guided access of the right common femoral artery and selective right common femoral artery angiogram INDICATION: Chest discomfort concerning for angina COMPLICATION: None APPROACH: Right common femoral artery LEVEL OF SEDATION: Moderate with sedation in length of 31 minutes PROCEDURE DESCRIPTION: After obtaining an informed consent, the patient was brought to cardiac seed laboratory assistant. Local anesthesia was performed using lidocaine subcutaneously. The right common femoral artery was cannulated using Seldinger technique, the guidewire passed easily, following that we advanced a 6 Egyptian sheath dilator assembly, the wire and dilator were removed and sheath was flushed. Selective right and left coronary angiogram using a 6-Egyptian JR4 and JL catheters. ARMANDO to LAD angiogram and SVG to diagonal angiogram and SVG to OM angiogram performed using the JR4 catheter and SVG to RCA angiogram was performed using multipurpose catheter Following that we did left heart catheterization using 6-Egyptian pigtail catheter. The procedure was completed there was no complication. SELECTIVE CORONARY ANGIOGRAM: The right coronary artery: Large-caliber vessel with severe disease involving the mid and distal portion Left main: Has mild disease only The left circumflex: Large-caliber vessel nondominant vessel with occluded obtuse marginal branch The left anterior descending artery: Large caliber vessel appears to be subtotally occluded in the midportion. Gives rise into a large diagonal branch which has critical lesion The ARMANDO to LAD is patent The SVG to diagonal is occluded The SVG to RCA is patent The SVG to LCx is patent HEMODYNAMICS: LVEDP was about 28 mmHg with no significant gradient across aortic valve CONCLUSION: 1. Severe triple-vessel CAD 2. Patent ARMANDO to LAD and occluded SVG to diagonal and patent SVG to LCx and patent SVG to RCA 3. Successful PCI of the diagonal using 2.5 x 15 mm Xience JAYANT with an excellent angiographic result 4. Elevated left-sided filling pressure POSTPROCEDURE MANAGEMENT: Dual antiplatelet therapy using aspirin and Plavix for at least 6-month
[2024-09-01 15:48] VITALS: BP 142/69; PULSE 54
[2024-09-02] MEDS ORDERED: CLOPIDOGREL 75 MG TAB PO SCH (09:00)
[2024-09-02] MEDS ORDERED: ASPIRIN 81 MG PO SCH (09:00)
--- NOTE | 2024-09-06 10:23 | P.PCN ---
Date of Procedure: 09/01/24 Operative Findings: PERCUTANEOUS CORONARY INTERVENTION Performing physician Alin Flanagan M.D. Procedure Performed: 1. Successful stenting of the first diagonal branch using 2.5 x 15 mm Xience JAYANT with an excellent angiographic results 2. Adjunctive use of IVUS Indication: Symptomatic 74-year-old gentleman who underwent a heart catheterization and was found to have severe disease involving in the protected diagonal Approach: Right common femoral artery Complications: None Level of Sedation: Moderate with a sedation length of 24 minutes Procedure Discussion: Please refer to diagnostic heart catheterization was performed earlier reviewed anticoagulation was initiated using heparin. I did engage the left main using 6 American EBU 3.75 guiding catheter. I did wired the diagonal using a run-through wire. After that I did wired it using another wire and that was a whisper wire for support. I did intravascular ultrasound which showed a diameter around 2.5 mm. Predilatation was performed using 2.0 x 12 mm balloon before I deployed 2.5 x 15 mm Xience JAYANT where the stent was positioned under fluoroscopy guidance and deployed under fluoroscopy guidance and postdilated using 2.5 mm x 8 mm NC balloon with final angiogram showing excellent angiographic result Postprocedure Management: 1. Dual antiplatelet therapy using aspirin and Plavix for at least 6-month 2. Aggressive cholesterol: 3. Risk factors modification
== END 2024-09-01 15:25 | disposition home or self-care (01) ==
LOC: CATHCVL 06:40
PROVIDERS: ATTEND Internal Medicine Interventional Cardiology
DX: I25.810 Atherosclerosis of coronary artery bypass graft(s) without angina pectoris (principal); I38 Endocarditis, valve unspecified; I49.01 Ventricular fibrillation; I10 Essential (primary) hypertension; E78.5 Hyperlipidemia, unspecified; F17.210 Nicotine dependence, cigarettes, uncomplicated; Z95.1 Presence of aortocoronary bypass graft; Z95.810 Presence of automatic (implantable) cardiac defibrillator; Z79.899 Other long term (current) drug therapy
CPT/HCPCS: 93459; 80048; 85025; J2250; J1644 ×3; J1940; J2003; J3010; Q9967; J2305

== ENCOUNTER → 2025-02-05 | Outpatient (CLI) | payer MEDICARE, OTHER ==
[2025-02-05 09:55] LABS: Prothrombin Time 11.5 sec (10.0-12.5)
[2025-02-05 15:37] LABS: HCT 37.3 % (39.6-50.0); HGB 12.2 g/dL (13.0-17.0); MCH 34.7 pg (27.0-32.0); MCHC 32.7 g/dL (32.0-37.0); Mean Platelet Volume 11.1 FL (9.5-12.2); NRBC Per 100 WBC 0 X 10*3/uL (0.00-0.01); Platelet Count 158 X 10*3/uL (140-440); RBC 3.52 X 10*6/uL (4.40-5.60); RDW 13.3 % (11.5-14.5); WBC 6.68 X 10*3/uL (4.50-10.00)
[2025-02-05 15:51] LABS: Blood Urea Nitrogen 31.7 mg/dL (9.0-27.0); Calcium 8.9 mg/dL (8.7-10.3); Carbon Dioxide 22.7 mmol/L (21.6-31.8); Chloride 106 mmol/L (96-109); Glucose 93 mg/dL (70-110); Potassium 5.4 mmol/L (3.5-5.5); Sodium 137 mmol/L (135-145)
[2025-02-05 16:02] LABS: Basophils # (A) 0.02 X 10*3/uL (0.00-0.10); Basophils % (A) 0.3 %; Eosinophils # (A) 0.12 X 10*3/uL (0.04-0.35); Eosinophils % (A) 1.8 %; Lymphocytes # (A) 1.57 X 10*3/uL (0.90-5.00); Lymphocytes % (A) 23.5 %; Monocytes # (A) 0.51 X 10*3/uL (0.20-1.00); Monocytes % (A) 7.6 %; Neutrophils # (A) 4.44 X 10*3/uL (1.80-7.70); Neutrophils % (A) 66.5 %
== END | disposition home or self-care (01) ==
LOC: LABPAT 08:42
PROVIDERS: ATTEND Orthopaedic Surgery
DX: Z01.812 Encounter for preprocedural laboratory examination (principal); M17.11 Unilateral primary osteoarthritis, right knee; Z22.322 Carrier or suspected carrier of Methicillin resistant Staphylococcus aureus
CPT/HCPCS: 80048; 85025; 85610; 87070

== ENCOUNTER 2025-03-05 08:34 | Day surgery (SDC) | payer MEDICARE, OTHER ==
[2025-02-27 10:37] VITALS: BMI 37.2
[~2025-03-05 08:34] MED LIST changes: +LIDOCAINE 1% (10MG/ML) FOR IV START INTRADERMA PRN; -MIDAZOLAM 2 MG/2 ML VIAL ONE; -PROPOFOL 10 MG/ML 20 ML VIAL IV ONE; -SODIUM CHLORIDE 0.9% 1,000 ML IV SCH; +TRANEXAMIC 1,000 MG/100ML-NACL 1,000 MG in SALINE 1 100ML.BAG IVPB PRN
--- NOTE | 2025-03-05 09:52 | HP ---
HISTORY AND PHYSICAL DATE OF SURGERY: 03/05/2025. HISTORY OF PRESENT ILLNESS: Jason Garcia is a 74-year-old patient seen with symptomatic right knee osteoarthritis. After having treatment options discussed, he elected to proceed with right total knee arthroplasty. Consent regarding the procedure was obtained. Cardiac clearance was provided by Dr. Flanagan. PAST MEDICAL HISTORY: Cardiovascular disease, hypertension, and hyperlipidemia. PAST SURGICAL HISTORY: Placement of a defibrillator. DAILY MEDICATIONS: 1. . 2. Amlodipine. 3. Atorvastatin. 4. Spironolactone. 5. Finasteride. ALLERGIES: None reported. SOCIAL HISTORY: Denies tobacco use. PHYSICAL EXAMINATION: Evaluation of the right knee, range of motion is 0 to 120 degrees. There is mild effusion. Tenderness, medial joint line. Crepitance along the medial patellofemoral compartments with range of motion. Pain with patellofemoral compression. Ligaments stable. Hip rotation is without pain. Distal neurovascular exam is intact. IMAGING STUDIES: Radiographs of the right knee reveal severe osteoarthritic changes. IMPRESSION: 1. Right knee osteoarthritis. 2. Cardiovascular disease. 3. Hypertension. 4. Hyperlipidemia. PLAN: Right total knee arthroplasty. MMODL / IJN: [id number] /
[2025-03-05] MEDS: IV FLUID CONTINUATION 1,000 ML IV ONE (10:10)
[2025-03-05 10:38] LABS: Glucose,Whole Blood 75 mg/dL (70-110)
[2025-03-05] MEDS: ONDANSETRON 4 MG/2 ML VIAL IVP STA (10:58)
[2025-03-05] MEDS: MELOXICAM 7.5 MG TAB PO PRN (10:58)
[2025-03-05] MEDS: ACETAMINOPHEN TAB 500 MG TAB PO PRN (10:58)
[2025-03-05] MEDS: LACTATED RINGERS 1,000 ML IV SCH (10:59)
[2025-03-05] MEDS: DEXAMETHASONE SOD PHOSPHATE 4 MG/ML 1 ML VIAL IVP STA (10:59)
[2025-03-05] MEDS: MIDAZOLAM 2 MG/2 ML VIAL IV ONE (11:04)
--- NOTE | 2025-03-05 11:51 | P.ANPRN ---
Procedure Note - Anesthesia - Nerve Block Performed Right Adductor Canal Infusion Time Out Performed: Yes (1103) Date of Procedure: 03/05/25 Location of Patient: PreOp Indication: Acute Post-Operative Pain, Dx/Pain Location (right knee), Requested by Surgeon Specifically requested for management of pain by DrRio: Gal Ansari Sedation Type: Sedate with meaningful contact maintained Position: Supine Catheter: Indwelling Needle Types: Pajunk Needle Gauge: 18 Ultrasound used to visualize needle placement: Yes Ultrasound used to observe medication spread: Yes Injectate: 0.5% Ropivacaine (see comment for volume) (20 cc + 10 cc of Normal Saline) Blood Aspirated: No Pain Paresthesia on Injection Noted: No Resistance on Injection: Normal Image Stored and Saved: Yes Events: Uneventful and Well Tolerated Right iPack Single Time Out Performed: Yes Date of Procedure: 03/05/25 Location of Patient: PreOp Indication: Acute Post-Operative Pain, Dx/Pain Location (Right knee), Requested by Surgeon Specifically requested for management of pain by DrRio: Gal Ansari Sedation Type: Sedate with meaningful contact maintained Preparation: Sterile Prep Position: Left Lateral Catheter: None Needle Types: Pajunk Needle Gauge: 21 (80 mm) Ultrasound used to visualize needle placement: Yes Ultrasound used to observe medication spread: Yes Injectate: 0.5% Ropivacaine (see comment for volume) (20 cc + 10 cc of Normal Saline) Blood Aspirated: No Pain Paresthesia on Injection Noted: No Resistance on Injection: Normal Image Stored and Saved: Yes Events: Uneventful and Well Tolerated
[2025-03-05] MEDS ORDERED: MIDAZOLAM 2 MG/2 ML VIAL ONE (12:39)
[2025-03-05] MEDS ORDERED: SODIUM CHLORIDE 0.9% (PF) 10 ML VIAL ONE (12:39)
[2025-03-05] MEDS ORDERED: SUCCINYLCHOLINE CHLORIDE 200 MG/10 ML VIAL IV ONE (12:39)
[2025-03-05] MEDS ORDERED: ROPIVACAINE 5 MG/ML 30 ML VIAL ONE (12:39)
[2025-03-05] MEDS ORDERED: TRANEXAMIC 1,000 MG/100ML-NACL PREMIX BAG ONE (12:39)
[2025-03-05] MEDS ORDERED: HYDROmorphone (PF) 1 MG/ML ONE (12:39)
[2025-03-05] MEDS ORDERED: fentaNYL (PF) 50 MCG/ML 2 ML AMP ONE (12:39)
[2025-03-05] MEDS ORDERED: PROPOFOL 10 MG/ML 20 ML VIAL IV ONE (12:39)
[2025-03-05] MEDS ORDERED: LIDOCAINE 1% INJ 10MG/ML (20 ML MDV) ONE (12:39)
[2025-03-05] MEDS: ceFAZolin 2 GM in DEXTROSE 5% IN WATER 50 ML IVPB PRN (12:44)
[2025-03-05] MEDS: ceFAZolin 1,000 MG in SODIUM CHLORIDE 0.9% 1,000 ML IRRIGATION ONE (12:46)
[2025-03-05] MEDS: LACTATED RINGERS 1,000 ML IV ONE (13:42)
--- NOTE | 2025-03-05 14:35 | P.OP ---
Date of Procedure: 03/05/25 Preoperative Diagnosis: Right knee osteoarthritis Postoperative Diagnosis: Right knee osteoarthritis Procedure(s) Performed: Right total knee arthroplasty Implants: 1. DePuy attune size 6 right cruciate retaining cemented femur 2. DePuy attune size 6 fixed-bearing cemented tibial baseplate 3. DePuy attune size 6 fixed-bearing cruciate retaining 8 mm polyethylene tibial insert 4. DePuy attune 35 mm all polyethylene cemented patella Anesthesia: regional (Adductor canal catheter, iPAQ block), spinal Surgeon: Gal Ansari [employer] #1: Kiel Roberts Estimated Blood Loss (ml): 40 Pathology: none sent Condition: stable Disposition: PACU Indications for Procedure: 74-year-old patient seen with symptomatic right knee osteoarthritis. After having treatment options discussed, he elected to proceed with right total knee arthroplasty. Operative Findings: See description of procedure Description of Procedure: Patient was taken to the operative suite after having an adductor canal catheter placed by the department of anesthesia. Patient underwent a spinal anesthetic by the department of anesthesia. Patient was given preoperative IV intake antibiotics and TXA. A well-padded tourniquet was placed about the right lower extremity. The lower extremity was then prepped and draped in the normal sterile orthopedic fashion. The extremity was elevated, a tourniquet was insufflated to 300. A standard anterior incision was made sharply through skin. Dissection was taken down through the subcutaneous soft tissues down to the extensor mechanism. A medial arthrotomy was performed, patella was everted and knee was flexed. There was advanced osteoarthritis noted. I introduced my distal intramedullary femoral drill. I then introduced the distal femoral c utting jig. Oracio CABRERA secured the cutting jig with 2 pins. I held retractors in position while Oracio CABRERA performed the distal femoral resection through the guide area we now removed her distal femoral cutting guide. We now placed our 4-in-1 femoral cutting block and positioned and it was secured with 2 pins by Oracio CABRERA while I held the block in position. The distal femoral finishing was now completed. A proximal tibial cutting guide was positioned. I held the guide in the appropriate position with both hands while Oracio CABRERA inserted stabilizing pins into the guide. Proximal tibial cut was made. We now placed a trial femoral component into position, along with an appropriate size tibial tray and insert. We now took the knee through range of motion and had full extension good flexion and good overall soft tissue balance noted. The patella was everted and stabilized with 2 towel clips held by Oracio CABRERA while I performed a flush with patellar quad tendon utilizing a fresh sawblade. We templated the patella, appropriate drill holes were made. An appropriate trial patella was positioned, knee was taken through full range of motion with the patella tracking very nicely. The trial patella was removed. Drill holes were made through the femoral component. All trial components were removed after marking off the appropriate rotation of the tibia. Retractors were now positioned along the proximal tibia. An appropriate keel punch was made with the appropriate size tibial guide by myself on Oracio CABRERA assisted by holding retractors. At this point appropriate size implants were chosen and opened. The joint was irrigated copiously with pulse lavage mechanical irrigation. The wound was irrigated with pulse lavage mechanical irrigation. We mixed antibiotic methylmethacrylate. We placed the knee into flexion. We placed multiple retractors assisted by Oracio CABRERA to expose the proximal tibia. Once the methyl methacrylate was ready, the tibial component was cemented into place removing any excess methylmethacrylate form by both myself and Oracio CABRERA. The femoral component was cemented into place removing the removing any excess methylmethacrylate performed by both myself and Oracio CABRERA. We then inserted the appropriate size polyethylene tibial insert. We made sure that it was locked into position. We took the knee into full extension, and then back in a flexion making sure we had removed any excess methylmethacrylate. The patellar component was then cemented down and secured with clamp. Excess methylmethacrylate removed. We kept the knee in full extension, patellar clamp in position until methylmethacrylate had hardened. Once it had hardened the patellar clamp was removed. The knee was taken through full range of motion. The patella tracked nicely. There was good soft tissue balancing. The tourniquet was now released. Additional hemostasis was achieved via electrocautery. A second gram of TXA was given. The wound again was irrigated with pulse lavage mechanical irrigation. The extensor mechanism was repaired with Ethibond suture. We checked the repair with range of motion and it was stable. The subcutaneous soft tissues were repaired with Vicryl in layers. The skin was approximated with pernio/Dermabond. Sterile dressings were applied followed by loose web roll and Jairo bandage. The patient was transferred to a bed, and taken to recovery in stable and satisfactory condition. Oracio CABRERA assisted with this complex procedure.
[2025-03-05] MEDS ORDERED: ONDANSETRON 4 MG/2 ML VIAL IVP PRN (14:36)
[2025-03-05] MEDS ORDERED: HYDROmorphone 0.5 MG/0.5 ML SYRINGE IVP PRN ×2 (14:36)
[2025-03-05] MEDS ORDERED: NALOXONE 0.4 MG/ML 1 ML VIAL IV PRN (14:36)
[2025-03-05] MEDS: ROPIVACAINE 1,100 MG, SODIUM CHLORIDE 0.9% 500 ML 330 ML, EMPTY PAIN BALL 1 EACH MISCELLANE PRN (15:15)
--- NOTE | 2025-03-05 15:36 | XR ---
EXAMINATION TYPE: XR knee limited RT DATE OF EXAM: 03/05/2025 3:29 PM COMPARISON: 03/30/2024 CLINICAL INDICATION: Male, 74 years old with history of Evaluation for Postop abnormality and alignme nt; PHH, pain TECHNIQUE 2 views. FINDINGS: Images show placement of right total knee arthroplasty. Both distal femoral and proximal tibial compo nents of the prosthesis are well seated without evidence of fracture. Alignment is anatomic. No major soft tissue swelling with scattered soft tissue air as well as intra-articular air related to recent operation. IMPRESSION: Uncomplicated postoperative appearance right total knee arthroplasty. [facility], Workstation: [facility], 03/05/2025 3:33 PM
[2025-03-05] MEDS: hydrALAZINE HCL 20 MG/ML 1 ML VIAL IVP STA (15:57)
[2025-03-05] MEDS: SODIUM CHLORIDE 0.9% 1,000 ML IV SCH (16:40)
[2025-03-05] MEDS: HYDROcodone/APAP 7.5-325MG 1 EACH TAB PO PRN (18:24)
[2025-03-05] MEDS: HYDROmorphone 0.5 MG/0.5 ML SYRINGE IVP PRN (21:11)
[2025-03-05] MEDS: ASPIRIN 81 MG PO SCH (21:12)
[2025-03-05] MEDS: ceFAZolin 2 GM in DEXTROSE 5% IN WATER 50 ML IVPB SCH (21:14)
--- NOTE | 2025-03-06 07:59 | P.PN ---
Progress Note - Text Progress Note Date: 03/06/25 Postoperative day # 1 status post total knee arthroplasty, on adductor canal perineural catheter placed for postoperative analgesia. Ropivacaine 0.2% 8 mL per hour through ON-Q pump continuous infusion. Pain is well controlled. On visual analog scale 1/10 Patient is taking PRN oral pain medications. Catheter site: Looks Ok. There is no erythema or tenderness. Continue with the current pain management plan and will follow.
[2025-03-06 08:02] LABS: Basophils # (A) 0.01 X 10*3/uL (0.00-0.10); Basophils % (A) 0.1 %; Eosinophils # (A) 0 X 10*3/uL (0.04-0.35); Eosinophils % (A) 0 %; HCT 30.6 % (39.6-50.0); HGB 10.3 g/dL (13.0-17.0); Lymphocytes # (A) 1.34 X 10*3/uL (0.90-5.00); Lymphocytes % (A) 9.1 %; MCH 34.7 pg (27.0-32.0); MCHC 33.7 g/dL (32.0-37.0); Mean Platelet Volume 10.5 FL (9.5-12.2); Monocytes # (A) 1.17 X 10*3/uL (0.20-1.00); Monocytes % (A) 7.9 %; NRBC Per 100 WBC 0 X 10*3/uL (0.00-0.01); Neutrophils # (A) 12.15 X 10*3/uL (1.80-7.70); Neutrophils % (A) 82.4 %; Platelet Count 144 X 10*3/uL (140-440); RBC 2.97 X 10*6/uL (4.40-5.60); RDW 13.7 % (11.5-14.5); WBC 14.74 X 10*3/uL (4.50-10.00)
[2025-03-06] MEDS: MULTIVITAMINS, THERA 1 EACH TAB PO SCH (08:59)
[2025-03-06] MEDS: CLOPIDOGREL 75 MG TAB PO SCH (08:59)
--- NOTE | 2025-03-06 12:10 | P.PN ---
Subjective Progress Note Date: 03/06/25 Principal diagnosis: Status post right total knee arthroplasty Patient evaluated at bedside today, he is resting up in his hospital chair, is present at bedside. He did well with physical therapy, he is having some increasing pain in slight nausea. Denies headaches, headedness, chest pain or shortness of breath Objective - Vital Signs Vital signs: Vital Signs Temp 98.5 F 03/06/25 08:00 Pulse 66 03/06/25 08:00 Resp 16 03/06/25 08:00 BP 154/68 03/06/25 08:00 Pulse Ox 97 03/06/25 08:00 FiO2 Intake & Output 03/05/25 03/06/25 03/06/25 18:59 06:59 18:59 Intake Total 1601 240 Output Total 40 Balance 1561 240 Weight 96.8 kg 96.8 kg Intake: IV 1601 Oral 240 Output: Estimated Blood Loss 40 Other: Voiding Method Toilet # Voids 1 - Exam Right lower extremity: Incision is clean, dry, and intact. The exofin fusion tape is in good condition. There is minimal soft tissue swelling and ecchymosis surrounding the medial and lateral aspects of the incision. Calf is soft, no tenderness with palpation. Plantar flexion, dorsiflexion, EHL, FHL are intact. Sensory exam to light touch throughout the extremity is intact, dorsal pedis pulses 2+. - Labs CBC & Chem 7: 03/06/25 03:36 Labs: Abnormal Lab Results - Last 24 Hours (Table) 03/06/25 Range/Units 03:36 WBC 14.74 H (4.50-10.00) X 10*3/uL RBC 2.97 L (4.40-5.60) X 10*6/uL Hgb 10.3 L (13.0-17.0) g/dL Hct 30.6 L (39.6-50.0) % MCV 103.0 H (80.0-97.0) FL MCH 34.7 H (27.0-32.0) pg Immature Gran # 0.07 H (0.00-0.04) X 10*3/uL Neutrophils # 12.15 H (1.80-7.70) X 10*3/uL Monocytes # 1.17 H (0.20-1.00) X 10*3/uL Eosinophils # 0 L (0.04-0.35) X 10*3/uL Assessment and Plan Assessment: Postoperative day #1 status post right total knee arthroplasty Plan: Pain control, continue current medications, IV medication as needed Icing elevating techniques discussed DVT prophylaxis, continue current medications Weight-bear as tolerated, utilize walker at all times Continue PT/OT Medical recommendations appreciated Discharge planning: Plan for discharge home with home care on 03/07/2025 Time with Patient: Less than 30
--- NOTE | 2025-03-06 13:03 | P.CONS ---
History of Present Illness - Reason for Consult Consult date: 03/06/25 Medical management - History of Present Illness History of present illness; patient 74-year-old gentleman with past medical history significant for hypertension, hyperlipidemia presented the hospital for elective right total knee arthroplasty. Patient was following up outpatient with Ortho for right knee pain, all conservative measures were tried but patient continued to have right knee pain. Patient was scheduled for right total knee arthroplasty on 03/05. Postoperatively internal medicine team were consulted for medical management REVIEW OF SYSTEMS: CONSTITUTIONAL: No fever, no malaise, no fatigue. HEENT: No recent visual problems or hearing problems. Denied any sore throat. CARDIOVASCULAR: No chest pain, orthopnea, PND, no palpitations, no syncope. PULMONARY: No shortness of breath, no cough, no hemoptysis. GASTROINTESTINAL: No diarrhea, no nausea, no vomiting, no abdominal pain. NEUROLOGICAL: No headaches, no weakness, no numbness. HEMATOLOGICAL: Denies any bleeding or petechiae. GENITOURINARY: Denies any burning micturition, frequency, or urgency. MUSCULOSKELETAL/RHEUMATOLOGICAL: Right knee pain ENDOCRINE: Denies any polyuria or polydipsia. The rest of the 14-point review of systems is negative. PHYSICAL EXAMINATION: GENERAL: The patient is alert and oriented x3, not in any acute distress. Well developed, well nourished. HEENT: Pupils are round and equally reacting to light. EOMI. No scleral icterus. No conjunctival pallor. Normocephalic, atraumatic. No pharyngeal erythema. No thyromegaly. CARDIOVASCULAR: S1 and S2 present. No murmurs, rubs, or gallops. PULMONARY: Chest is clear to auscultation, no wheezing or crackles. ABDOMEN: Soft, nontender, nondistended, normoactive bowel sounds. No palpable organomegaly. MUSCULOSKELETAL: Right knee surgical incision seen EXTREMITIES: No cyanosis, clubbing, or pedal edema. NEUROLOGICAL: Gross neurological examination did not reveal any focal deficits. SKIN: No rashes. Assessment and plan Right knee osteoarthritis status post total right knee arthroplasty Hypertension Hyperlipidemia Monitor vital signs Monitor CBC Continue pain management per orthopedics Continue DVT prophylaxis per orthopedics Aggressive bowel regimen to prevent opioid-induced constipation Resume home meds PT and OT consulted Labs and medication were reviewed.. Continue same treatment. Continue with symptomatic treatment. Resume home medication. Monitor labs and vitals. DVT and GI prophylaxis. Further recommendations as per clinical course of the patient Dictation was produced using [employer] dictation software. please excuse any gramm atical, word or spelling errors. Past Medical History Past Medical History: Chest Pain / Angina, Diabetes Mellitus, Hyperlipidemia, Hypertension, Myocardial Infarction (MA), Osteoarthritis (OA), Pneumonia Additional Past Medical History / Comment(s): Borderline Diabetic, varicose veins. Last Myocardial Infarction Date:: Prior to 2016 History of Any Multi-Drug Resistant Organisms: None Reported Past Surgical History: AICD, Coronary Bypass/CABG, Hernia Repair, Orthopedic Surgery, Pacemaker Additional Past Surgical History / Comment(s): RIGHT ROTATOR CUFF, LEFT FOOT SURGERY, BILATERAL EAR DRUM SURGERY, QUADRUPLE BYPASS IN 2017 Past Anesthesia/Blood Transfusion Reactions: No Reported Reaction Additional Past Anesthesia/Blood Transfusion Reaction / Comm: No hx blood transfusion. Type of Cardiac Device: AICD Device Placement Date:: 2014 Past Psychological History: No Psychological Hx Reported Smoking Status: Never smoker Past Alcohol Use History: None Reported Past Drug Use History: None Reported - Past Family History Mother Family Medical History: Cancer Additional Family Medical History / Comment(s): BREAST CANCER. Sister(s) Family Medical History: Cancer Additional Family Medical History / Comment(s): HALF-SISTER. Medications and Allergies Home Medications Medication Instructions Recorded Confirmed Type Atorvastatin [Lipitor] 40 mg PO DAILY #30 tab 09/20/17 03/05/25 Rx Clopidogrel [Plavix] 75 mg PO DAILY #30 tab 09/20/17 03/05/25 Rx Tamsulosin [Flomax] 0.4 mg PO DAILY 03/30/24 03/05/25 History carvediloL [Coreg] 25 mg PO BID 03/30/24 03/05/25 History amLODIPine [Norvasc] 2.5 mg PO DAILY #30 tablet 03/31/24 03/05/25 Rx Finasteride [Proscar] 5 mg PO DAILY 08/31/24 03/05/25 History Amiodarone [Cordarone] 200 mg PO DAILY 03/05/25 03/05/25 History Ergocalciferol [Vitamin D2 (1250 50,000 unit PO QMONTHLY 03/05/25 03/05/25 History Mcg = 98589 Iu)] Spironolactone 25 mg PO DAILY 03/05/25 03/05/25 History Allergies Allergy/AdvReac Type Severity Reaction Status Date / Time No Known Allergies Allergy Verified 03/05/25 10:14 Physical Exam Vitals: Vital Signs Temp Pulse Pulse Resp BP Pulse Ox 03/06/25 08:00 98.5 F 66 16 154/68 97 03/06/25 00:39 98.5 F 68 18 166/77 94 L 03/05/25 19:45 99.2 F 75 18 153/77 95 03/05/25 18:10 77 162/73 96 03/05/25 17:50 74 149/66 94 L 03/05/25 17:30 74 159/65 96 03/05/25 17:10 77 172/80 96 03/05/25 16:40 98.2 F 69 180/87 97 03/05/25 16:10 60 16 164/71 95 03/05/25 15:55 60 16 196/77 93 L 03/05/25 15:40 62 16 199/97 93 L 03/05/25 15:25 60 16 197/85 93 L 03/05/25 15:10 64 16 199/101 95 03/05/25 14:55 96.8 F L 65 65 10 L 197/90 95 03/05/25 11:23 50 L 14 173/83 98 Intake and Output 03/05/25 03/06/25 03/06/25 22:59 06:59 14:59 Intake Total 240 Balance 240 Intake: Oral 240 Other: Voiding Method Toilet # Voids 1 1 Weight 96.8 kg Results CBC & Chem 7: 03/06/25 03:36 Labs: Abnormal Lab Results - Last 24 Hours (Table) 03/06/25 Range/Units 03:36 WBC 14.74 H (4.50-10.00) X 10*3/uL RBC 2.97 L (4.40-5.60) X 10*6/uL Hgb 10.3 L (13.0-17.0) g/dL Hct 30.6 L (39.6-50.0) % MCV 103.0 H (80.0-97.0) FL MCH 34.7 H (27.0-32.0) pg Immature Gran # 0.07 H (0.00-0.04) X 10*3/uL Neutrophils # 12.15 H (1.80-7.70) X 10*3/uL Monocytes # 1.17 H (0.20-1.00) X 10*3/uL Eosinophils # 0 L (0.04-0.35) X 10*3/uL
[2025-03-07 08:09] VITALS: BP 166/104; PULSE 63; RESP 16; TEMP 98
[2025-03-07] MEDS: AMIODARONE 200 MG TAB PO SCH (08:52)
[2025-03-07] MEDS: ATORVASTATIN 40 MG TAB PO SCH (08:52)
[2025-03-07] MEDS: FINASTERIDE 5 MG TAB PO SCH (08:52)
[2025-03-07] MEDS: SPIRONOLACTONE 25 MG TAB PO SCH (08:52)
[2025-03-07] MEDS: TAMSULOSIN 0.4 MG CAP.ER.24H PO SCH (08:52)
[2025-03-07] MEDS: amLODIPine 2.5 MG TAB PO SCH (08:52)
[2025-03-07] MEDS: carvediloL 12.5 MG TAB PO SCH (08:53)
--- NOTE | 2025-03-07 11:37 | P.PN ---
Subjective Progress Note Date: 03/07/25 Principal diagnosis: Status post right total knee arthroplasty Patient evaluated at bedside today, he is resting up in his hospital chair. Patient is progressing well at this time. Denies headaches, headedness, chest pain or shortness of breath Objective - Vital Signs Vital signs: Vital Signs Temp 98.0 F 03/07/25 07:02 Pulse 63 03/07/25 07:02 Resp 16 03/07/25 07:02 BP 166/104 03/07/25 07:02 Pulse Ox 96 03/07/25 07:02 FiO2 Intake & Output 03/06/25 03/07/25 03/07/25 18:59 06:59 18:59 Intake Total 500 Balance 500 Intake: Oral 500 Other: # Voids 4 3 - Exam Right lower extremity: Incision is clean, dry, and intact. The foam dressing is in good condition. There is minimal soft tissue swelling and ecchymosis surrounding the medial and lateral aspects of the incision. Calf is soft, no tenderness with palpation. Plantar flexion, dorsiflexion, EHL, FHL are intact. Sensory exam to light touch throughout the extremity is intact, dorsal pedis pulses 2+. - Labs CBC & Chem 7: 03/06/25 03:36 Assessment and Plan Assessment: Postoperative day #2 status post right total knee arthroplasty Plan: Pain control, discharged home on oral medication Icing elevating techniques discussed DVT prophylaxis, will resume Plavix at discharge Weight-bear as tolerated, utilize walker at all times Home health care at discharge Medical recommendations appreciated Discharge planning: Stable for discharge home today Time with Patient: Less than 30
--- NOTE | 2025-03-07 11:40 | P.DS ---
Providers Date of admission: 03/05/2025 Expected date of discharge: 03/07/25 Attending physician: Gal Ansari Consults: 03/05/25 14:36 Consult Physician Routine Consulting Provider: Austen Alejandro Consult Reason/Comments: Medical management Do you want consulting provider notified?: Yes Primary care physician: Isabelle Sheridan Hospital Course: Date of admission: 03/05/2025 Date of discharge: 03/07/2025 Admission diagnosis: Status post right total knee arthroplasty Discharge diagnosis: Same Attending physician: Dr. Ansari Surgical procedures: Right total knee arthroplasty Brief history: Patient is a 74-year-old male with a history of progressive primary right knee osteoarthritis. At this point patient has failed conservative treatment measures and has opted to proceed with a elective right total knee arthroplasty. Hospital course: Details of patient's surgery can be found in operative report. Patient tolerated the procedure well and was subsequently transported to orthopedic floor. Patient's orthopeidc and medical care was provided daily. Patient had daily laboratory tests performed for evaluation of overall blood counts. Patient had daily physical therapy to include strengthening range of motion as well as education with walker ambulation. Patient was treated with Plavix for their postoperative DVT prophylaxis during their inpatient stay. Patient was noted to have a relatively uneventful postoperative course. Patient reported satisfactory pain control with oral pain medications by postoperative day 1. Patient showed satisfactory progress with physical therapy. Patient moved steadily through the program and had no difficulty meeting the goals by postoperative day 2. Given patient's otherwise satisfactory course and having met physical therapy goals, plan is to discharge patient home on postoperative day 2. Discharge condition/disposition: Patient will be discharged home in stable condition. Discharge medications: Instructions are given on resumption of patient's normal daily medications per primary care recommendation, in addition patient will be prescribed [place] 7.5 mg / 325 mg, senna S. Discharge instructions: 1. Wound care and infection precautions, keep incision dry and covered while showering, no lotions, creams, moisturizers. No soaking, tubs, pools, hottubs. Do not scrub over the incision. 2. Weight-bear as tolerated with walker / cane until follow-up. 3. Ice and elevate when necessary. Do not exceed 20 minutes per hour with ice pack. 4. Utilize compression sleeve until seen at first follow up appointment. 5. Visiting nursing care. 6. Home physical therapy including home CPM. 7. Pain meds and anticoagulants per prescription. 8. Pain medication has potential to cause constipation. Increase oral fluid and fiber intake. Contact primary care provider if you have not had a bowel movement within 48 hours after discharge 9. No anti-inflammatory medication until discussed at first post operative visit, this including Motrin, Aleve, Mobic, Diclofenac. 10. Follow up in office at 2 weeks postop with Oracio Roberts PA-C/Berhane Marmolejo 11. Follow up with your primary care doctor 7-10 days after discharge. 12. Contact [facility] with any questions, . Procedures: Right total knee arthroplasty Patient Condition at Discharge: Good Plan - Discharge Summary Discharge Rx Participant: Yes New Discharge Prescriptions: New HYDROcodone/APAP 7.5-325MG [[place] 7.5] 1 each PO Q6HR PRN #28 tab PRN Reason: Pain Sennosides/Docusate Sodium [Senna-S 8.6-50 mg Tablet] 2 each PO DAILY PRN #30 tablet PRN Reason: Constipation No Action Atorvastatin [Lipitor] 40 mg PO DAILY #30 tab Clopidogrel [Plavix] 75 mg PO DAILY #30 tab Tamsulosin [Flomax] 0.4 mg PO DAILY Finasteride [Proscar] 5 mg PO DAILY Amiodarone [Cordarone] 200 mg PO DAILY carvediloL [Coreg] 25 mg PO BID amLODIPine [Norvasc] 2.5 mg PO DAILY #30 tablet Spironolactone 25 mg PO DAILY Ergocalciferol [Vitamin D2 (1250 Mcg = 18091 Iu)] 50,000 unit PO QMONTHLY Discharge Medication List Atorvastatin [Lipitor] 40 mg PO DAILY #30 tab 09/20/17 [Rx] Clopidogrel [Plavix] 75 mg PO DAILY #30 tab 09/20/17 [Rx] Tamsulosin [Flomax] 0.4 mg PO DAILY 03/30/24 [History] carvediloL [Coreg] 25 mg PO BID 03/30/24 [History] amLODIPine [Norvasc] 2.5 mg PO DAILY #30 tablet 03/31/24 [Rx] Finasteride [Proscar] 5 mg PO DAILY 08/31/24 [History] Amiodarone [Cordarone] 200 mg PO DAILY 03/05/25 [History] Ergocalciferol [Vitamin D2 (1250 Mcg = 53702 Iu)] 50,000 unit PO QMONTHLY 03/05/25 [History] Spironolactone 25 mg PO DAILY 03/05/25 [History] HYDROcodone/APAP 7.5-325MG [[place] 7.5] 1 each PO Q6HR PRN #28 tab 03/07/25 [Rx] Sennosides/Docusate Sodium [Senna-S 8.6-50 mg Tablet] 2 each PO DAILY PRN #30 tablet 03/07/25 [Rx] Follow up Appointment(s)/Referral(s): [facility],Equipment [NON-STAFF] - As Needed (*Call [facility] once home to arrange delivery of the Continuous Passive Motion (CPM) machine.) [facility], [NON-STAFF] - 1-2 Days ([facility] will call you to schedule your in home nursing and physical therapy visits. ) Kiel Roberts, PAC [PHYSICIAN GIFT SHOP CLERK] - 2 Weeks Activity/Diet/Wound Care/Special Instructions: Orthopedic Discharge Instructions: 1. Wound care and infection precautions, keep incision dry and covered while showering, no lotions, creams, moisturizers. No soaking, pools, hot tubs. Do not scrub over incision. 2. Weight-bear as tolerated with walker / cane until follow-up. 3. Ice and elevate when necessary. Do not exceed 20 minutes per hour with ice pack. 4. Utilize compression sleeve until seen at first follow up appointment. 5. Pain meds and anticoagulants per prescription. 6. Pain medication has potential to cause constipation. Increase oral fluid and fiber intake. Contact primary care provider if you have not had a bowel movement within 48 hours after discharge. 7. No anti-inflammatory medication until discussed at first post operative visit, this including Motrin, Aleve, Mobic, Diclofenac. 8. Follow up in office at 2 weeks postop with Oracio Roberts PA-C/Berhane Forrester PA-C 9. Follow up with your primary care doctor 7-10 days after discharge. 10. Contact [facility] with any questions, . Wound care instructions: 1. Okay to remove surgical dressing as of 03/14/2025 2. Okay to shower directly over the incision after removal of dressing Discharge Disposition: HOME WITH HOME HEALTH SERVICES
== END 2025-03-07 13:23 | disposition home health service (06) ==
LOC: OR 08:34 → 4SSUR 14:51 → OR 03-07 13:23
PROVIDERS: ATTEND Orthopaedic Surgery
DX: M17.11 Unilateral primary osteoarthritis, right knee (principal); I10 Essential (primary) hypertension; E78.5 Hyperlipidemia, unspecified; E11.9 Type 2 diabetes mellitus without complications; I25.2 Old myocardial infarction; G89.18 Other acute postprocedural pain; J18.9 Pneumonia, unspecified organism; Z79.02 Long term (current) use of antithrombotics/antiplatelets; Z79.899 Other long term (current) drug therapy; Z95.1 Presence of aortocoronary bypass graft; Z95.810 Presence of automatic (implantable) cardiac defibrillator; Z98.890 Other specified postprocedural states
CPT/HCPCS: 97161; 64448; 64474; 85025; 73560; 27447; C1776; C1713 ×2; C1751; J2250; J0360; J1100; J0690 ×3; J2405; J2795; J1171

== ENCOUNTER → 2025-05-14 | Outpatient (CLI) | payer MEDICARE, OTHER ==
[2025-05-14 08:27] LABS: African American GFR (CKD) 51 (>60 ml/min/1.73 sqM); Blood Urea Nitrogen 38 mg/dL (9-20); Non-African American GFR(CKD) 44 (>60 ml/min/1.73 sqM)
--- NOTE | 2025-05-14 08:57 | CT ---
EXAMINATION TYPE: CT abdomen w con CT DLP: 1472.7 mGycm, Automated exposure control for dose reduction was used. DATE OF EXAM: 05/14/2025 8:49 AM COMPARISON: None CLINICAL INDICATION:Male, 74 years old with history of C61 Prostate CA; Prostate CA. TECHNIQUE: Standard CT of the abdomen following the administration of 100 cc of Isovue 300 IV contr ast material and oral contrast. Coronal and sagittal reformats were performed. FINDINGS: LOWER CHEST: Sternotomy wires. Partial visualization of cardiac pacemaker leads. No pericardial effus ion. The visualized lung bases are clear. ABDOMEN LIVER: Unremarkable GALLBLADDER AND BILE DUCTS: Unremarkable. PANCREAS: Unremarkable. SPLEEN: Unremarkable. ADRENAL GLANDS: Unremarkable. KIDNEYS AND URETERS: No evidence of hydronephrosis or renal calculus. The kidneys enhance symmetrical ly. Contrast is demonstrated within both collecting systems and proximal ureters on the delayed phase . STOMACH AND BOWEL: Stomach and duodenum are unremarkable. Enteric contrast reaches the ileocecal junc tion. The appendix is within normal limits. Sigmoid colonic diverticulosis without evidence for acute diverticulitis. No focal bowel wall thickening or surrounding inflammatory changes. No evidence of b owel obstruction. PERITONEUM: No evidence of pneumoperitoneum or free fluid. VASCULATURE: Mild atherosclerotic calcifications are present throughout the abdominal aorta and its b ranches. No evidence of aortic aneurysm. Ectasia of the distal abdominal aorta measuring up to 2.8 cm . MUSCULOSKELETAL: No acute osseous abnormalities. Degenerative changes of the bilateral SI joints with anterior bridging. Prominent posterior osteophytes at T11-T12, T12-L1 and L2-L3. No aggressive osseo us lesion. LYMPH NODES: No evidence for lymphadenopathy. SOFT TISSUE/ABDOMINAL WALL: Small fat filled umbilical hernia. IMPRESSION: No acute abdominal process. No CT evidence for metastasis within the abdomen. [facility], , 05/14/2025 8:54 AM
--- NOTE | 2025-05-14 13:50 | NM ---
INDICATION: Patient age:Male; 74 years old; Reason for study: C61 Prostate CA; [facility]. COMPARISON: CT abdomen 05/14/2025, and knee radiographs 03/05/2025, 03/30/2024. TECHNIQUE: Intravenous administration of 25.7 mCi of Technetium 99m-hydroxydiphosphonate followed by multiple scintigraphic images of the appendicular and axial skeleton. Additionally, small field of vi ew planar anterior and posterior images of the knees. Lastly, small [id number] anterior, posterior and lateral views of the chest were submitted for review. FINDINGS: No abnormal uptake is identified within the appendicular or axial skeleton to suggest metastatic dise ase. There is increased uptake within the bilateral shoulder, sternoclavicular, bilateral ankles, bilatera l knees and sacroiliac joints consistent with degenerative changes. Evidence of photopenic region wi thin the right knee related to recent arthroplasty. Physiologic radiotracer activity is demonstrated in the kidneys and bladder. IMPRESSION: Nothing to suggest metastatic disease. [facility], , 05/14/2025 1:48 PM
== END | disposition home or self-care (01) ==
LOC: RADNMMAIN 07:40
PROVIDERS: ATTEND Urology
DX: C61 Malignant neoplasm of prostate (principal)
CPT/HCPCS: 82565; 84520; 74160; 36415; 78306; A9503; Q9967